=== PATIENT | male | born 1985 | race Caucasian/White ===

== ENCOUNTER 2017-06-04 07:53 | Emergency (ER) | payer MEDICAID ==
--- NOTE | 2017-06-04 08:52 | EDM.PDOC ---
ED HPI GENERAL MEDICAL PROBLEM - General Chief Complaint: General Stated Complaint: LEG PAIN Time Seen by Provider: 06/04/17 08:17 Source of Information: Reports: Patient, RN History Limitations: Reports: No Limitations - History of Present Illness INITIAL COMMENTS - FREE TEXT/NARRATIVE: The patient states that he has been experiencing bilateral upper and bilateral lower extremity pain for the past 2 weeks. 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 He states that his PCP is Dr. Nguyễn Henderson, in [place], however, for reasons unclear, he was seen at a clinic in [place] about 2 weeks ago. He states that bloodwork was done, but that he was not notified of the results. He states that he was referred to the diabetic manager purchasing in our clinic, and that the [place] clinic is also going to refer him to a pain management service. He states that he currently has a pain management service, but for whatever reason he wants to switch to a different one. He states that he was then called by a pharmacy today and told that there is a prescription for a medicine to treat an autoimmune disorder that is ready for him. He does not know the name of that medicine, and has not yet picked it up. He presents to the ED requesting pain medication to hold him over until he can get into his new pain management service. No recent injury. He states that he is a brittle diabetic with blood sugars ordinarily around 400 , but that if he takes even 20 units of Lantus, his blood sugar may dropped to 150, making him symptomatic. He is hoping to get an insulin pump from the diabetic manager purchasing. Generalized Pain Score (Numeric/FACES): 9 - Related Data Allergies Allergy/AdvReac Type Severity Reaction Status Date / Time No Known Allergies Allergy Verified 06/04/17 08:23 Home Meds: Home Meds Gabapentin [Neurontin] 600 mg PO TID 06/04/17 [History] Insulin Glarg,Human.Rec.Analog [LantUS Solostar] 20 units SUBCUT BID 06/04/17 [ History] Novolog Insulin. 15 units SQ TID 06/04/17 [History] Past Medical History Neurological History: Reports: Neuropathy, Diabetic Endocrine/Metabolic History: Reports: Diabetes, Type I - Past Surgical History HEENT Surgical History: Reports: Myringotomy w Tube(s) (bilateral), Oral Surgery Social & Family History - Tobacco Use Smoking Status *Q: Current Every Day Smoker Years of Tobacco use: 18 Packs/Tins Daily: 0.3 Packs/Tins Daily Comment: Down from 1 ppd - Alcohol Use Alcohol Use History: No - Recreational Drug Use Recreational Drug Use: Yes Drug Use in Last 12 Months: Yes Recreational Drug Type: Reports: Dilaudid (last January 2017), Marijuana/Hashish (last Feb 2017), Methamphetamine (last 2013), Other (see below) (Rx opioids, last Mar 2017) - Living Situation & Occupation Living situation: Reports: Single, with Significant Other (Girlfriend), with Family (3 daughters) Occupation: Employed ([employer]) ED ROS GENERAL - Review of Systems Review Of Systems: See Below Constitutional: Reports: No Symptoms HEENT: Reports: No Symptoms Respiratory: Reports: No Symptoms Cardiovascular: Reports: No Symptoms Endocrine: Reports: No Symptoms GI/Abdominal: Reports: No Symptoms : Reports: No Symptoms Musculoskeletal: Reports: No Symptoms Skin: Reports: No Symptoms Neurological: Reports: No Symptoms Psychiatric: Reports: No Symptoms Hematologic/Lymphatic: Reports: No Symptoms Immunologic: Reports: No Symptoms ED EXAM, GENERAL - Physical Exam Exam: See Below Exam Limited By: No Limitations General Appearance: Alert, WD/WN, No Apparent Distress, Other (Disheveled) Eye Exam: Bilateral Eye: Normal Inspection Ears: Normal External Exam, Hearing Grossly Normal Nose: Normal Inspection, No Blood Throat/Mouth: Normal Inspection, Normal Lips, Normal Voice, No Airway Compromise Head: Atraumatic, Normocephalic Neck: Normal Inspection, Full Range of Motion Respiratory/Chest: No Respiratory Distress, Lungs Clear, Normal Breath Sounds, No Accessory Muscle Use Cardiovascular: Normal Peripheral Pulses, Regular Rate, Rhythm, No Gallop, No JVD, No Murmur, No Rub Peripheral Pulses: 4+: Radial (L), Radial (R) GI/Abdominal: Normal Bowel Sounds, Soft, Non-Tender, No Organomegaly, No Distention, No Abnormal Bruit, No Mass (Male) Exam: Deferred Rectal (Males) Exam: Deferred Back Exam: Normal Inspection, Full Range of Motion, NT Extremities: Normal Inspection, Normal Range of Motion, No Pedal Edema, Normal Capillary Refill Neurological: Alert, Oriented, Normal Cognition, No Motor/Sensory Deficits Psychiatric: Normal Affect Skin Exam: Warm, Dry, Intact, Normal Color, No Rash Course - Vital Signs Last Recorded V/S: Last Vital Signs Temp 36.6 C 06/04/17 08:25 Pulse 100 06/04/17 08:25 Resp BP 124/79 06/04/17 08:25 Pulse Ox 100 06/04/17 08:25 - Re-Assessments/Exams Free Text/Narrative Re-Assessment/Exam: 06/04/17 08:47 The patient states that he has bilateral upper and bilateral lower extremity pain for the past 2 weeks, due to diabetic neuropathy. He was hoping that we could give him some pain medication to hold him until he can get in and see a new pain specialist. I explained that that is not the role of the emergency department. I explained that diabetic neuropathy is managed with neuroleptics, such as gabapentin, that the patient is are on, and strict control of his blood sugars. The patient states that he has already been referred to the diabetic manager purchasing at our clinic. I encouraged him to follow through on that. With respect to pain management, the patient states that he already has a pain management service, but that he is quitting that 1 in anticipation of finding a new one, however explained that pain management services are difficult to get into, and that he should think twice before quitting his current pain management service. Departure - Departure Time of Disposition: 08:50 Disposition: Home, Self-Care 01 Condition: Good Clinical Impression: Extremity pain - Discharge Information Referrals: Nguyễn Henderson MD [Ordering Only Provider] - Forms: ED Department Discharge Additional Instructions: You were seen in the emergency room for upper and lower extremity pain. Unfortunately, the emergency room is not in a position to treat chronic issues like this. He needs to follow-up with your primary care physician or diabetic manager purchasing. If any other problems, please do not hesitate to return to the ER.
== END 2017-06-04 09:04 | disposition home or self-care (01) ==
LOC: JD.ED 07:53
DX: M79.604 Pain in right leg (principal); M79.605 Pain in left leg; M79.601 Pain in right arm; M79.602 Pain in left arm; F17.210 Nicotine dependence, cigarettes, uncomplicated; Z79.4 Long term (current) use of insulin
CPT/HCPCS: 99282; 99283

== ENCOUNTER 2017-07-29 14:49 | Emergency (ER) | payer MEDICAID ==
--- NOTE | 2017-07-29 15:24 | EDM.PDOC ---
ED HPI GENERAL MEDICAL PROBLEM - General Chief Complaint: Skin Complaint Stated Complaint: CYST ON RECTUM Time Seen by Provider: 07/29/17 15:01 Source of Information: Reports: Patient History Limitations: Reports: No Limitations - History of Present Illness INITIAL COMMENTS - FREE TEXT/NARRATIVE: The patient presents with a perirectal abscess. This is the 7th time in the past 3 years. He has been to surgery before. It did drain last night but he still has pain but no fever or chills. He has no other complaints. Onset: Gradual Duration: Day(s): Location: Reports: Other (Periractal area) Quality: Reports: Sharp Severity: Severe Improves with: Reports: None Worsens with: Reports: None Associated Symptoms: Reports: No Other Symptoms Treatments OVERNIGHT BABYSITTER: Reports: Other (see below) Other Treatments OVERNIGHT BABYSITTER: rayna Rectal Pain Score (Numeric/FACES): 7 - Related Data Allergies Allergy/AdvReac Type Severity Reaction Status Date / Time No Known Allergies Allergy Verified 07/29/17 15:03 Home Meds: Home Meds Gabapentin [Neurontin] 600 mg PO TID 06/04/17 [History] Insulin Glarg,Human.Rec.Analog [LantUS Solostar] 20 units SUBCUT BID 06/04/17 [ History] Novolog Insulin. 15 units SQ TID 06/04/17 [History] Doxycycline [Vibramycin] 100 mg PO BID #20 cap 07/29/17 [Rx] Hydrocodone/Acetaminophen [Hydrocodon-Acetaminophen 5-325] 1 - 2 each PO Q6HR PRN #20 tablet 07/29/17 [Rx] Ondansetron [Zofran ODT] 4 mg PO Q6H PRN #20 tab.dis 07/29/17 [Rx] Past Medical History Neurological History: Reports: Neuropathy, Diabetic Endocrine/Metabolic History: Reports: Diabetes, Type I - Infectious Disease History Infectious Disease History: Reports: Hepatitis C - Past Surgical History HEENT Surgical History: Reports: Myringotomy w Tube(s), Oral Surgery Social & Family History - Family History Family Medical History: Noncontributory - Tobacco Use Smoking Status *Q: Current Every Day Smoker Years of Tobacco use: 13 Packs/Tins Daily: 1 - Caffeine Use Caffeine Use: Reports: Coffee, Energy Drinks, Soda, Tea - Recreational Drug Use Recreational Drug Use: Yes Drug Use in Last 12 Months: Yes Recreational Drug Type: Reports: Dilaudid, Marijuana/Hashish, Morphine - Living Situation & Occupation Living situation: Reports: Single, with Significant Other (Girlfriend), with Family (3 daughters) Occupation: Employed ([employer]) ED ROS GENERAL - Review of Systems Review Of Systems: See Below Constitutional: Reports: No Symptoms HEENT: Reports: No Symptoms Respiratory: Reports: No Symptoms Cardiovascular: Reports: No Symptoms Endocrine: Reports: No Symptoms GI/Abdominal: Reports: No Symptoms : Reports: No Symptoms Musculoskeletal: Reports: No Symptoms Skin: Reports: Other (Perirectal abscess) ED EXAM, SKIN/RASH Exam: See Below Exam Limited By: No Limitations General Appearance: Alert, No Apparent Distress Ears: Normal External Exam Nose: Normal Inspection Head: Atraumatic, Normocephalic Neck: Normal Inspection Respiratory/Chest: No Respiratory Distress Rectal (Males) Exam: Other (Moderate tenderness and edama to the left perirectal area.) Course - Vital Signs Last Recorded V/S: Last Vital Signs Temp 97.6 F 07/29/17 14:58 Pulse 109 H 07/29/17 14:58 Resp 18 07/29/17 14:58 BP 129/99 H 07/29/17 14:58 Pulse Ox 99 07/29/17 14:58 Departure - Departure Time of Disposition: 15:25 Disposition: Home, Self-Care 01 Condition: Good Clinical Impression: Perirectal abscess - Discharge Information Prescriptions: Hydrocodone/Acetaminophen [Hydrocodon-Acetaminophen 5-325] 1 - 2 each PO Q6HR PRN #20 tablet PRN Reason: Pain Doxycycline [Vibramycin] 100 mg PO BID #20 cap Ondansetron [Zofran ODT] 4 mg PO Q6H PRN #20 tab.dis PRN Reason: Nausea\vomiting Referrals: PCP,None [Primary Care Provider] - Ranulfo Ramey MD [Physician] - 1 Week Additional Instructions: Take the medication as prescribed. Sit in a hot bath a couple times per day. Please return if you are worse.
== END 2017-07-29 15:37 | disposition home or self-care (01) ==
LOC: JD.ED 14:49
DX: K61.1 Rectal abscess (principal); F17.210 Nicotine dependence, cigarettes, uncomplicated
CPT/HCPCS: 99283

== ENCOUNTER 2017-08-16 09:31 | Day surgery (SDC) | payer MEDICAID ==
[~2017-08-16 09:31] MED LIST: Lactated Ringers 1,000 ML IV SCH; Lidocaine 1%/Sod Bicarbonate in NS 8.4% 1 ML Syringe IDERM PRN; Sodium Chloride 0.9% 10 ML Syringe FLUSH PRN
[2017-08-16] MEDS ORDERED: fentaNYL 100 MCG/2 ML SDV IVPUSH PRN ×2 (09:41→13:13)
[2017-08-16] MEDS ORDERED: Ondansetron 4 MG/2 ML SDV IVPUSH PRN ×2 (09:41→13:13)
[2017-08-16] MEDS ORDERED: Midazolam 1 MG/ML 2 ML SDV ONE (11:00)
[2017-08-16] MEDS ORDERED: fentaNYL 250 MCG/5 ML SDV ONE (11:00)
[2017-08-16] MEDS ORDERED: Propofol 200 MG/20 ML SDV ONE (11:00)
[2017-08-16] MEDS ORDERED: ceFAZolin 1 GM Vial ONE (11:00)
[2017-08-16] MEDS ORDERED: Ondansetron 4 MG/2 ML SDV ONE (11:00)
--- NOTE | 2017-08-16 11:42 | PCM.PREANE ---
Preanesthetic Assessment - Anesthesia/Transfusion/Family Hx Anesthesia History: Prior Anesthesia Without Reaction Family History of Anesthesia Reaction: No Transfusion History: No Prior Transfusion(s) - Review of Systems General: No Symptoms, Other (hep C) Pulmonary: Other (smoker 1ppd) Cardiovascular: No Symptoms Gastrointestinal: No Symptoms, Other (heartburn with certain foods) Neurological: Numbness (diabetic neuropathy in hands and feet), Tingling Other: Reports: Diabetes (blood glucose was 397 patient states that he run between 220-350. ), Depression (PTSD) - Physical Assessment NPO Status Date: 08/15/17 NPO Status Time: 22:00 Pulse: 81 O2 Sat by Pulse Oximetry: 97 Respiratory Rate: 16 Blood Pressure: 120/80 Vital Signs: Last Vital Signs Temp 36.8 C 08/16/17 09:35 Pulse 81 08/16/17 09:35 Resp 16 08/16/17 09:35 BP 120/81 08/16/17 09:35 Pulse Ox 97 08/16/17 09:35 Height: 1.75 m Weight: 72.121 kg ASA Class: 3 Mental Status: Alert & Oriented x3 Airway Class: Mallampati = 2 Dentition: Reports: Normal Dentition, Broken Tooth/Teeth (all tight) Thyro-Mental Finger Breadths: 3 Mouth Opening Finger Breadths: 3 ROM/Head Extension: Full Lungs: Clear to Auscultation, Normal Respiratory Effort Cardiovascular: Regular Rate, Regular Rhythm - Lab Values: Laboratory Last Values POC Glucose 397 mg/dL (70-105) H 08/16/17 09:51 - Allergies Allergies/Adverse Reactions: Allergies Allergy/AdvReac Type Severity Reaction Status Date / Time No Known Allergies Allergy Verified 07/29/17 15:03 - Blood Blood Available: No Product(s) Available: None - Anesthesia Plan Pre-Op Medication Ordered: None - Acknowledgements Anesthesia Type Planned: General Anesthesia Pt an Appropriate Candidate for the Planned Anesthesia: Yes Alternatives and Risks of Anesthesia Discussed w Pt/Guardian: Yes Pt/Guardian Understands and Agrees with Anesthesia Plan: Yes PreAnesthesia Questionnaire Neurological History: Reports: Neuropathy, Diabetic Psychiatric History: Reports: PTSD Endocrine/Metabolic History: Reports: Diabetes, Type I - Infectious Disease History Infectious Disease History: Reports: Hepatitis C - Past Surgical History HEENT Surgical History: Reports: Myringotomy w Tube(s), Oral Surgery GI Surgical History: Reports: Other (See Below) Other GI Surgeries/Procedures: multiple procedures on anal fistula Musculoskeletal Surgical History: Reports: Other (See Below) Other Musculoskeletal Surgeries/Procedures:: left hip debridement - SUBSTANCE USE Smoking Status *Q: Current Every Day Smoker Tobacco Use Within Last Twelve Months: Cigarettes Recreational Drug Use History: No Recreational Drug Type: Reports: Dilaudid, Marijuana/Hashish, Morphine - HOME MEDS Home Medications: Home Meds Gabapentin [Neurontin] 600 mg PO TID 06/04/17 [History] Insulin Glarg,Human.Rec.Analog [LantUS Solostar] 20 units SUBCUT BID 06/04/17 [ History] Novolog Insulin. 1 units SQ ASDIRECTED 06/04/17 [History] - CURRENT (IN HOUSE) MEDS Current Meds: Current Medications Fentanyl (Sublimaze) 50 mcg IVPUSH Q5M PRN PRN Reason: pain Stop: 08/16/17 18:00 Lactated Ringer's (Ringers, Lactated) 1,000 mls @ 125 mls/hr IV ASDIRECTED [facility] Stop: 08/16/17 23:00 Last Admin: 08/16/17 09:50 Dose: 125 mls/hr Lidocaine/Sodium Bicarbonate (Buffered Lidocaine 1% In Ns 8.4%) 0.25 ml IDERM ONETIME PRN PRN Reason: Prior to IV Start Stop: 08/16/17 18:00 Last Admin: 08/16/17 09:50 Dose: 0.25 ml Ondansetron HCl (Zofran) 4 mg IVPUSH ONETIME PRN PRN Reason: Nausea/Vomiting Stop: 08/16/17 18:00 Sodium Chloride (Saline Flush) 10 ml FLUSH ASDIRECTED PRN PRN Reason: Keep Vein Open Stop: 08/16/17 18:00 Discontinued Medications Cefazolin Sodium (Ancef) Confirm Administered Dose 2 gm .ROUTE .STK-MED ONE Stop: 08/16/17 11:01 Fentanyl (Sublimaze) Confirm Administered Dose 250 mcg .ROUTE .STK-MED ONE Stop: 08/16/17 11:01 Lactated Ringer's (Ringers, Lactated) 1,000 mls @ 125 mls/hr IV ASDIRECTED [facility] Stop: 08/14/17 23:00 Lidocaine/Sodium Bicarbonate (Buffered Lidocaine 1% In Ns 8.4%) 0.25 ml IDERM ONETIME PRN PRN Reason: Prior to IV Start Stop: 08/14/17 18:00 Midazolam HCl (Versed 1 Mg/Ml) Confirm Administered Dose 2 mg .ROUTE .STK-MED ONE Stop: 08/16/17 11:01 Ondansetron HCl (Zofran) Confirm Administered Dose 4 mg .ROUTE .STK-MED ONE Stop: 08/16/17 11:01 Propofol (Diprivan 20 Ml) Confirm Administered Dose 200 mg .ROUTE .STK-MED ONE Stop: 08/16/17 11:01 Sodium Chloride (Saline Flush) 10 ml FLUSH ASDIRECTED PRN PRN Reason: Keep Vein Open Stop: 08/14/17 18:00
[2017-08-16] MEDS ORDERED: HYDROmorphone 1 MG/ML Syringe ONE (12:07)
[2017-08-16] MEDS ORDERED: Lidocaine 1% 50 ML MDV ONE (12:29)
[2017-08-16] MEDS ORDERED: Ketorolac 30 MG/ML SDV ONE (12:49)
[2017-08-16] MEDS ORDERED: Lactated Ringers 1,000 ML ONE (12:53)
--- NOTE | 2017-08-16 13:02 | PCM.OPNOTE ---
- General Post-Op/Procedure Note Date of Surgery/Procedure: 08/16/17 Operative Procedure(s): excision of perianal cyst Pre Op Diagnosis: fistua en ano Post-Op Diagnosis: perianal cyst Anesthesia Technique: General LMA Primary Surgeon: Evens Medina EBL in mLs: 0 Complications: None Condition: Good
--- NOTE | 2017-08-16 13:12 | PCM.POSTAN ---
POST ANESTHESIA ASSESSMENT - MENTAL STATUS Mental Status: Somnolent - VITAL SIGNS Pulse Rate: 67 SaO2: 94 Resp Rate: 9 Blood Pressure: 106/61 Temperature: 36.9 C - RESPIRATORY Respiratory Status: Respiratory Rate WNL, Airway Patent, O2 Saturation Stable, Supplemental Oxygen - CARDIOVASCULAR CV Status: Pulse Rate WNL, Blood Pressure Stable - GASTROINTESTINAL GI Status: No Symptoms - PAIN Pain Score: 0 - POST OP HYDRATION Hydration Status: Adequate & Stable
--- NOTE | 2017-08-16 13:45 | PCM48HPAN ---
Post Anesthesia Note - EVALUATION WITHIN 48HRS OF ANESTHETIC Vital Signs in Normal Range: Yes Patient Participated in Evaluation: Yes Respiratory Function Stable: Yes Airway Patent: Yes Cardiovascular Function Stable: Yes Hydration Status Stable: Yes Pain Control Satisfactory: Yes Nausea and Vomiting Control Satisfactory: Yes Mental Status Recovered: Yes Pulse Rate: 67 Resp Rate: 9 Temperature: 36.9 C Blood Pressure: 106/61 - COMMENTS/OBSERVATIONS Free Text/Narrative:: post op blood sugar 294
--- NOTE | 2017-08-17 09:48 | OR ---
DATE OF OPERATION: 08/16/2017 SURGEON: Evens Medina MD PREOPERATIVE DIAGNOSIS: [id number]. POSTOPERATIVE DIAGNOSIS: Perianal cyst was drained. OPERATION PERFORMED: Excision of a perianal cyst done under general anesthetic. DESCRIPTION OF PROCEDURE: The patient was taken to the operating room, placed in a supine position, connected to monitoring equipment, given a general anesthetic, placed in lithotomy position. The perianal area was inspected, showed induration on the left anterior perianal area. However, careful inspection of the anal columns did not show any connection to this area and was unable to demonstrate any fissure. There were external hemorrhoids noted. A small cyst was noted in this area. Incision was made over and it was removed. Bleeding points were used to control the bleeding and the Nupercainal ointment was placed. The patient tolerated the procedure and sent to recovery room in a stable condition, will be followed up in the clinic and start on sitz baths and pain medication. ANESTHESIA: ESTIMATED BLOOD LOSS: MMODAL /[id number]
== END 2017-08-16 14:30 | disposition home or self-care (01) ==
LOC: JD.SDS 09:31
PROVIDERS: ATTEND Surgery
DX: K62.89 Other specified diseases of anus and rectum (principal); K64.4 Residual hemorrhoidal skin tags; B19.20 Unspecified viral hepatitis C without hepatic coma; F17.210 Nicotine dependence, cigarettes, uncomplicated; E10.40 Type 1 diabetes mellitus with diabetic neuropathy, unspecified; Z79.4 Long term (current) use of insulin
CPT/HCPCS: 36415; 46220; 80053; 82962; 85025; A9270; J1170; J1885; J2250; J2405; J3010; J7120; J0690; J2704

== ENCOUNTER 2017-08-23 15:07 | Emergency (ER) | payer MEDICAID ==
--- NOTE | 2017-08-23 16:43 | EDM.PDOC ---
ED HPI GENERAL MEDICAL PROBLEM - General Chief Complaint: Gastrointestinal Problem Stated Complaint: POST SURGICAL PAIN Time Seen by Provider: 08/23/17 16:30 Source of Information: Reports: Patient, Old Records History Limitations: Reports: No Limitations - History of Present Illness INITIAL COMMENTS - FREE TEXT/NARRATIVE: 31-year-old male presents for evaluation treatment of postsurgical pain. Reportedly the patient had an anal fistula surgically fixed by Dr. Medina one week ago. His was presceribed norco. He is now out of these. States that he saw Dr. Medina today prior to coming the ER. was told to take Motrin. States that the rectal pain is so significant that he cannot sit. He denies any fevers, chills, nausea or vomiting. Is taking stool softeners. Patient reports yesterday he appreciated a lump to the area and also appreciate a foul smell. These are not present today. States that he was told by Dr. Medina that the area was red. follow-up with Dr. Medina again in 2 weeks. Reviewed the patient's records show that he was in same day surgery 1 week ago for a perianal abscess. This was drained by Dr. Medina. per the patient he is not currently on antibiotics. Rectal Pain Score (Numeric/FACES): 7 - Related Data Allergies Allergy/AdvReac Type Severity Reaction Status Date / Time No Known Allergies Allergy Verified 07/29/17 15:03 Home Meds: Home Meds Gabapentin [Neurontin] 600 mg PO TID 06/04/17 [History] Insulin Glarg,Human.Rec.Analog [LantUS Solostar] 20 units SUBCUT BID 06/04/17 [ History] Novolog Insulin. 1 units SQ ASDIRECTED 06/04/17 [History] Acetaminophen/HYDROcodone [[place] 325-5 MG] 1 tab PO Q4H PRN #20 tablet 08/23/17 [Rx] Past Medical History Gastrointestinal History: Reports: Hemorrhoids Neurological History: Reports: Neuropathy, Diabetic Psychiatric History: Reports: PTSD Endocrine/Metabolic History: Reports: Diabetes, Type I - Infectious Disease History Infectious Disease History: Reports: Hepatitis C - Past Surgical History HEENT Surgical History: Reports: Myringotomy w Tube(s), Oral Surgery GI Surgical History: Reports: Other (See Below) Other GI Surgeries/Procedures: multiple procedures on anal fistula Musculoskeletal Surgical History: Reports: Other (See Below) Other Musculoskeletal Surgeries/Procedures:: left hip debridement Social & Family History - Family History Family Medical History: Noncontributory - Tobacco Use Smoking Status *Q: Current Every Day Smoker Years of Tobacco use: 12 Packs/Tins Daily: 0.5 Used Tobacco, but Quit: No Second Hand Smoke Exposure: No - Caffeine Use Caffeine Use: Reports: None - Recreational Drug Use Recreational Drug Use: No Drug Use in Last 12 Months: No Recreational Drug Type: Reports: Dilaudid, Marijuana/Hashish, Morphine - Living Situation & Occupation Living situation: Reports: Single, with Significant Other (Girlfriend), with Family (3 daughters) Occupation: Employed ([employer]) ED ROS GENERAL - Review of Systems Review Of Systems: See Below Constitutional: Denies: Fever, Chills GI/Abdominal: Reports: Other (reports rectal pain). Denies: Nausea, Vomiting ED EXAM, GI/ABD - Physical Exam Exam: See Below Exam Limited By: No Limitations General Appearance: Alert, WD/WN, No Apparent Distress Respiratory/Chest: No Respiratory Distress Rectal (Males) Exam: Normal Exam, Rectal Fissure (6 o'clock position), Other ( no swelling or erythema). No: Perirectal Abscess Neurological: Alert, Oriented, Normal Cognition Psychiatric: Normal Affect, Normal Mood Course - Vital Signs Last Recorded V/S: Last Vital Signs Temp 36.5 C 08/23/17 15:14 Pulse 88 08/23/17 15:14 Resp 18 08/23/17 15:14 BP 131/89 08/23/17 15:14 Pulse Ox 100 08/23/17 15:14 - Re-Assessments/Exams Free Text/Narrative Re-Assessment/Exam: 08/23/17 16:29 Patient was searched on the [place] prescription drug registry. He has received 17 prescriptions from 4 different prescribers for controlled substance within the last year. His last prescription was for [place] 5-325 on 08-16-17 #20. This was a 5 day supply. Patient reports that he was in a pain contract previously for diabetic neuropathy. He is no longer the pain contract. I will give the patient some pain pills as he does seem to be acutely uncomfortable here. He was educated that we are unable to give further refills through the ER. Should he require any additional pain management he will have to see his primary care provider or discuss with Dr. Medina regarding this. He expresses understanding. Discharge instructions as documented. Departure - Departure Time of Disposition: 16:38 Disposition: Home, Self-Care 01 Condition: Fair Clinical Impression: Perirectal abscess, Rectal pain - Discharge Information Prescriptions: Acetaminophen/HYDROcodone [[place] 325-5 MG] 1 tab PO Q4H PRN #20 tablet PRN Reason: Pain Instructions: Perirectal Abscess Referrals: PCP,Not In Area [Primary Care Provider] - Evens Medina MD [Physician] - Forms: ED Department Discharge Additional Instructions: [place] one to 2 tabs every 4-6 hours as needed for pain not relieved by Tylenol or Motrin. Do not take more than 4 g of Tylenol from all sources in 1 day. Do not take more than 3200 mg ibuprofen from all sources in 1 day. Continue with your current plan of care per Dr. Medina. If you need further pain control beyond what you received here in the ER, recommend discussing this with your primary care provider or your surgeon. Unfortunately, in the ER we are unable to refill narcotics for chronic pain problems. Please return to the ER if your symptoms change or worsen.
== END 2017-08-23 16:45 | disposition home or self-care (01) ==
LOC: JD.ED 15:07
DX: K61.1 Rectal abscess (principal); E10.40 Type 1 diabetes mellitus with diabetic neuropathy, unspecified; F17.210 Nicotine dependence, cigarettes, uncomplicated; Z79.899 Other long term (current) drug therapy
CPT/HCPCS: 99283

== ENCOUNTER 2022-03-17 02:01 | Emergency (ER) | payer SELFPAY ==
[2022-03-17] MEDS ORDERED: Insulin Glargine,Human Rec. Analog 100 Units/ML 3 ML Pen SUBCUT ONE (03:25)
[2022-03-17] MEDS ORDERED: Insulin Regular, Human 100 Units/ML 3 ML Vial SUBCUT ONE (03:25)
[2022-03-17] MEDS ORDERED: Sodium Chloride 0.9% 1,000 ML IV ONE (03:26)
[2022-03-17 03:27] LABS: CORONAVIRUS COVID-19 NAA NEGATIVE (NEGATIVE)
== END 2022-03-17 06:40 | disposition home or self-care (01) ==
LOC: JD.ED 02:01
DX: E10.65 Type 1 diabetes mellitus with hyperglycemia (principal); F15.10 Other stimulant abuse, uncomplicated; F17.210 Nicotine dependence, cigarettes, uncomplicated; Z79.4 Long term (current) use of insulin; Z79.899 Other long term (current) drug therapy; Z20.822 Contact with and (suspected) exposure to COVID-19
CPT/HCPCS: 0240U; 36415; 80053; 80143; 80179; 80306; 80307; 81001; 82009; 82947; 84443; 85025; 99283; J1815; 99284